=== PATIENT | male | born 2000 | race Caucasian/White ===

== ENCOUNTER 2022-02-07 20:26 | Emergency (ER) | payer BC, SELFPAY ==
[2022-02-07 20:27] VITALS: BP 135/101; PULSE 88; RESP 20; TEMP 36.4; O2SAT 100; BMI 21.5
--- NOTE | 2022-02-07 20:58 | EDS_ITS ---
HPI History of Present Illness Chief Complaint: Other, Pain/Inj Narrative Narrative: Patient denies significant past medical history presents with injury to his left fourth digit on his left hand. He is right-hand dominant. He states he was getting ready to take a shower and flopped down on the couch. PFSH PFSH Medical History no medical history Home Medications NK 02/07/22 [History Last Taken Unknown] Allergy/AdvReac Type Severity Reaction Status Date / Time No Known Allergies Allergy Verified 02/07/22 20:29 Family History no significant family his Surgical History no surgical history Social History Smoking Status: Current every day smoker tobacco type: cigarettes and e-cig arettes EXAM Physical Exam Const Vital Signs: 02/07/22 20:27 02/07/22 22:08 Temperature 97.5 F L Temperature Source Temporal Pulse Rate 88 87 Respiratory Rate 20 H 18 Blood Pressure 135/101 H Blood Pressure Mean 112 Pulse Ox 100 99 Oxygen Delivery Method Room Air Room Air MDM MDM MDM Narrative Medical decision making narrative: Initial x-ray interpreted by myself shows lateral dislocation of the fourth digit at the PIP. No evidence of fracture. Patient verbally consented for digital block and closed reduction. Lidocaine 1% was injected at the base of the fourth digit after alcohol prep. Manual reduction was completed. He will be placed in aluminum foam splint after postreduction x-ray is taken. My int erpretation of the postreduction x-ray of the finger in 2 views shows normal alignment, no fracture. At this point in time he will continue ice and elevation and continue to wear the splint. He was referred to the orthopedic physician on-call. I feel he can be discharged safely home with follow-up. Return instructions were reviewed. Disposition is discharged home in stable condition. Radiography Diagnostic Testing: Clinical Impression(s) from Imaging Studies Finger X-Ray 02/07/22 21:15 IMPRESSION: 1. Lateral dislocation at the level of the 4 proximal interphalangeal joint. No acute or healing fracture. 2. Soft tissues swelling at the level of the dislocation. 3. No other osseous or soft tissue abnormalities. Electronically Signed: Rob Fink MD at 21:54 EDT , Discharge Plan Triage Chief Complaint: Other, Pain/Inj ED Provider: Donn Garcia Dx/Rx/DC Orders Clinical Impression: Dislocation of finger, closed, Finger pain, left Instructions: ED Finger Dislocation Prescriptions: No Action NK Primary Care Provider: Care Physician,No Primary Referrals: Mino Schmitt DO [STAFF PHYSICIAN] - 1 Week Disposition Disposition: Home, Self Care
[2022-02-07] MEDS: HYDROcodone Bitartrate/Apap 5/325 Tablet PO (21:09)
--- NOTE | 2022-02-07 21:15 | RAD_ITS ---
EXAM: XR LEFT FINGERS, 2 OR MORE VIEWS CLINICAL INDICATION: dislocation TECHNIQUE: Frontal, lateral and oblique views of the fingers of the left hand. This report was created using [employer] report generation technology. COMPARISON: None. FINDINGS: See Impression. RAD/Finger(s) Min 2 Views IMPRESSION: 1. Lateral dislocation at the level of the 4 proximal interphalangeal joint. No acute or healing fracture. 2. Soft tissues swelling at the level of the dislocation. 3. No other osseous or soft tissue abnormalities. Electronically Signed: Rob Fink MD at 21:54 EDT ,
[2022-02-07 22:08] VITALS: PULSE 87; RESP 18; O2SAT 99
--- NOTE | 2022-02-07 22:27 | RAD_ITS ---
EXAM: XR LEFT FINGERS, 2 OR MORE VIEWS CLINICAL INDICATION: post reduction TECHNIQUE: Frontal, lateral and oblique views of the fingers of the left hand. This report was created using [employer] report generation technology. COMPARISON: None. FINDINGS: See Impression. RAD/Finger(s) Min 2 Views IMPRESSION: 1. Anatomic alignment at the fourth proximal interphalangeal joint following closed reduction. Focal soft tissue swelling along the dorsal aspect of this articulation. 2. No evidence for acute fracture. 3. No other significant abnormalities. Electronically Signed: Rob Fink MD at 23:33 EDT ,
[2022-02-07] MEDS: Lidocaine 1% (20 ml mdv) 20 ML Vial 10 ML INFILT (22:29)
== END 2022-02-07 22:54 | disposition home or self-care (01) ==
LOC: ED 22:26
PROVIDERS: Emergency Provider Emergency Medicine; Visit Provider Emergency Medicine
DX: S63.259A Unspecified dislocation of unspecified finger, initial encounter (principal); F17.210 Nicotine dependence, cigarettes, uncomplicated; W08.XXXA Fall from other furniture, initial encounter
CPT/HCPCS: 64450; 26770; 73140; 99283